=== PATIENT | female | born 1990 ===

== ENCOUNTER 2025-10-13 08:13 | Outpatient (AMB) | payer MEDICAID, SELFPAY ==
[2025-10-13 08:32] VITALS: BP 88/61; PULSE 79; RESP 18; TEMP 36.3; O2SAT 96; BMI 37.9
--- NOTE | 2025-10-13 08:32 | OBCLNT_ITS ---
Vital Signs 10/13/25 08:32 Height 1.5 m Height Method Stated Weight 85.389 kg Weight Measurement Method Standing Scale BMI 37.9 BP 88/61 L Blood Pressure Source Automatic Cuff Blood Pressure Location Right Upper Arm Position Sitting Respiration 18 Pulse 79 Pulse Source Monitor Temp 97.3 F Temp Source Temporal Artery Scan Pulse Oximetry (%) 96 Oxygen Delivery Method Room Air Allergies/Home Meds Allergies & Medications Allergies No Known Allergies Allergy (Verified 10/13/25 08:33) Medication Reconciliation No Known Home Medications 10/13/25 [History Confirmed 10/13/25] Intake Visit Data Collection New Patient or Established: New Patient (never been to [facility]) Reason for Visit:: OBI TRANSFER Seen by Clinical Staff ONLY (RN/MA): No Color Print Inspector Required: No Do You Feel Safe at Home: Yes Authorities Contacted: N/A PCP or OBGYN visit in last 3 months: No Hx Now: Yes Are you currently on any form of Control: No Last menstrual period: 01/17/25 Pain Present Currently: No Pain Scale Used: Munoz-Ferrer/Numerical Pain scale:: 0 Smoking Status Smoking Status: Never smoker Immunizations Flu Vaccine in the Last 12 Months: No Flu Vaccine Exclusion Criteria: No Exclusion Criteria Questionnaires Covid-19 Vaccine Questionnaire Has patient been vacinated for Covid-19 Have you been vacinated for Covid-19: No PHQ-9 PHQ-2 Over the last 2 weeks, how often have you been bothered by any of the following problems? 1. Little interest or pleasure in doing things: not at all 2. Feeling down, depressed, or hopeless: not at all Total score: 0 PHQ-9 3. Trouble falling or staying asleep, or sleeping too much: Not at all 4. Feeling tired or having little energy: Not at all 5. Poor appetite or overeating: Not at all 6. Feeling bad about yourself - or that you are a failure or have let yourself or your family down: Not at all 7. Trouble concentrating on things, such as reading the newspaper or watching television: Not at all 8. Moving or speaking so slowly that other people could have noticed? - Or the opposite - being so fidgety or restless that you have been moving around a lot more than usual: not at all 9. Thoughts that you would be better off or of hurting yourself in some way: Not at all Total score: 0 If you checked off any problems, how difficult have these problems made it for you to do your work, take care of things at home, or get along with other people?: not difficult at all Source: Developed by Drs. Toni Beasley, Shaina Guerrero, Maynor Worley and colleagues, with an educational nicholas from [employer]. Depression screen completed yes Social History Living Situation History Marital Status: Lives With: Family Housing: House Tobacco History Smoking Status: Never smoker Second Hand Smoke Exposure: No Alcohol History Alcohol Intake: Never Domestic Abuse History Do You Feel Safe at Home: Yes History of Present Illness HPI Narrative 34-year-old 6 para 4 for OBI. Patient is a transfer from [facility] partial records. She has had no problems in the . She has poor dates. Her last period January 17, 2025. This gave an EDC based on LMP of October 24, 2025. Patient had an ultrasound May 15. She was 12 weeks and this corrected the EDC to November 26, 2025. Reports movement. Denies leaking, bleeding, contractions. Patient received Tdap and flu. Denies any history of chronic illness. Denies social habits. Denies surgeries. OB Initial Visit OB Flowsheet OB Flowsheet Initial Weight: Not Recorded Date -?-?-?-?-?-?-?-?-?-?-?-?- EGA Weight BP Alb Glu CTX Pres Fundal ht FHR Mov Dilation Station Effacement Hx Notes Visit Note 10/13/25 -?-?-?-?-?-?-?-?-?-?-?-?- 33w 4d 85.389 kg 88/61 absent cephalic 33 145 active 34-year-old 6 para 4 for OBI. Patient is a transfer from [facility] with partial records. Poor dates her last period January 17, 2025. This gave a due date of October 24, 2025. First ultrasound May 15. Patient was 12 weeks and that changed to EDC to November 26, 2025. Patient has already gotten Tdap and whooping cough 34-year-old 6 para 4 for OBI. Patient is a transfer from [facility] with partial records. Poor dates her last period January 17, 2025. This gave a due date of October 24, 2025. First ultrasound May 15. Patient was 12 weeks and that changed to EDC to November 26, 2025. Patient has already gotten Tdap and whooping cough. Reports good movement. Denies leaking, bleeding, contractions Reviewed chart. GBS next visit. Discussed labor precautions kick count twice a day. Return in 2 weeks OB check Menstrual History Menstrual reliability: definite Flow: normal Menstrual regularity: regular Monthly: Yes Age at menarche: 16 OB History : 6 Para: 4 Hx Total # of Abortions (Spontaneous & Elective): 1 # of Living Children: 4 Delivery History 1st : Child's name: JHONY SOLORZANO date: 02/26/11 sex: female Delivery type: vaginal 2nd : Child's name: PARAG SHELDON date: 01/10/14 sex: male Delivery type: vaginal 3rd : Child's name: ROSITA AGUILAR date: 11/29/17 sex: female Delivery type: vaginal 4th : Child's name: RENATO MARTEL date: 10/03/20 sex: male Delivery type: vaginal Infection History & Risk Evaluation History of STDs: none Genetic Screening & History Genetic Screening/Teratology Counseling - Includes patient, baby's father, or anyone in either family with: 1. Patient's age 35 years or older as of estimated date of delivery: No 2. Thalassemia (Mohawk, Citizen Of [place], Mediterranean, or Background); MCV less than 80: No 3. Neural Tube Defect (Meningomyelocele, Spina Bifida, or Anencephaly): No 4. Congenital Heart Defect: No 5. Down Syndrome: No 6. Manoj-Sachs (Ashkenazi Orthodoxy, Caj[place], [place]): No 7. Narendra Disease (Ashkenazi Orthodoxy): No 8. Familial Dysautonomia (Ashkenazi Orthodoxy): No 9. Sickle Cell Disease or Trait (): No 10. Hemophilia or other blood disorders: No 11. Muscular Dystrophy: No 12. Cystic Fibrosis: No 13. [place]'s Chorea: No 14. Mental Retardation/Autism: Yes 15. Other inherited genetic or chromosomal disorder: No 16. Maternal Metabolic Disorder (EG,TYPE 1 Diabetes, PKU): No 17. Patient or baby's father had a child with defects not listed above: No 18. Recurrent loss or a stillbirth: No 19. Medications (including supplements, vitamins, herbs or otc drugs)/illicit/recreational drugs/alcohol since last menstrual period: No 20. Any other: No Infection History Other (see comments) Source: [employer] Review of Systems Review of Systems Systems Reviewed: All systems reviewed, normal except as documented Exam General Limitations: no limitations General Appearance: alert, in no apparent distress, comfortable, cooperative, healthy appearing, well developed and well groomed Head Head exam: atraumatic, normocephalic and normal inspection Chest Chest inspection: Present normal inspection and symmetric chest wall rise Resp Respiratory exam: Present normal lung sounds bilaterally Card Cardiovascular exam: Present regular rate, normal rhythm and normal heart sounds Abdominal Abdominal exam: Present soft and normal bowel sounds Psych Psychiatric exam: Present normal affect and normal mood Office Procedures OBC Clinic LOC & Office Proc's Nursing/Assessment Patient Status: Initial/New Patient OB Clinic Nursing Assessment: Medication Reconciliation, Update PMH in EMR and Vital Signs OB Clinic Coordination of Care: Complex Care and Chronic Disease 1-5, Education Complex Pt/Fam, Consent,records obtained, informed consent, Lab and Imaging orders, Results/Orders obtained and Staff clarify orders Special Needs: Heart tones New Patient Charge New Patient Point Assignment: [id number] 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 Continue prenatals. Discussed labor precautions. Increase fluids and return in 2 weeks OB check Additional Plan Follow Up: 2 Weeks (obc)
== END 2025-10-13 09:06 | disposition home or self-care (01) ==
LOC: HODSOBC 08:13
PROVIDERS: Supervising Provider Advanced Practice Midwife; Visit Provider Advanced Practice Midwife
DX: O09.893 Supervision of other high risk pregnancies, third trimester (principal); O26.843 Uterine size-date discrepancy, third trimester; Z3A.33 33 weeks gestation of pregnancy
CPT/HCPCS: 99204; G0463

== ENCOUNTER 2025-11-03 14:15 | Outpatient (AMB) | payer MEDICAID, SELFPAY ==
[2025-11-03 14:39] VITALS: BP 110/73; PULSE 86; RESP 18; TEMP 36.8; O2SAT 98; BMI 35.3
--- NOTE | 2025-11-03 14:39 | OBCLNT_ITS ---
Vital Signs 11/03/25 14:39 Height 1.55 m Height Method Stated Weight 84.878 kg Weight Measurement Method Standing Scale BMI 35.3 BP 110/73 Blood Pressure Source Automatic Cuff Blood Pressure Location Left Upper Arm Position Sitting Respiration 18 Pulse 86 Pulse Source Monitor Temp 98.2 F Temp Source Oral Pulse Oximetry (%) 98 Oxygen Delivery Method Room Air Allergies/Home Meds Allergies & Medications Allergies No Known Allergies Allergy (Verified 11/03/25 14:40) Medication Reconciliation No Known Home Medications 10/13/25 [History Confirmed 11/03/25] Immunizations Immunizations Flu Vaccine in the Last 12 Months: No Flu Vaccine Exclusion Criteria: Already Received Care OB Visit Log OB Flowsheet Initial Weight: Not Recorded Date -?-?-?-?-?-?-?-?-?-?-?-?- EGA Weight BP Alb Glu CTX Pres Fundal ht FHR Mov Dilation Station Effacement Hx Notes Visit Note 10/13/25 -?-?-?-?-?-?-?-?-?-?-?-?- 33w 4d 85.389 kg 88/61 absent cephalic 33 145 active 34-year-old 6 para 4 for OBI. Patient is a transfer from [facility] with partial records. Poor dates her last period January 17, 2025. This gave a due date of October 24, 2025. First ultrasound May 15. Patient was 12 weeks and that changed to EDC to November 26, 2025. Patient has already gotten Tdap and whooping cough 34-year-old 6 para 4 for OBI. Patient is a transfer from [facility] with partial records. Poor dates her last period January 17, 2025. This gave a due date of October 24, 2025. First ultrasound May 15. Patient was 12 weeks and that changed to EDC to November 26, 2025. Patient has already gotten Tdap and whooping cough. Reports good movement. Denies leaking, bleeding, contractions Reviewed chart. GBS next visit. Discussed labor precautions kick count twice a day. Return in 2 weeks OB check 11/03/25 -?-?-?-?-?-?-?-?-?-?-?-?- 36w 4d 84.878 kg 110/73 absent cephalic 36 145 active Fetus active. Reports good movement. Denies leaking, bleeding, contractions Schedule ultrasou nd at [facility] stat for growth and anatomy. Discussed labor precautions and kick count with patient. GBS today. Discussed danger signs and return week OB check RICO Calculator Estimated Delivery Date Method Current WG Current Estimate 11/27/25 Ultrasound #1 36w 4d Other Estimates 10/24/25 LMP (Uncertain) 41w 3d Notes Visit Date: 10/13/25 Last Updated by: Renee Walsh CNM OB panel: O+,abs-, rpr;;nr, rub IMM, hbsag-,hiv-,HC-, GC/CT- 2 hr gtt-. . TDAP/flu Office Procedures OBC Clinic LOC & Office Proc's Nursing/Assessment Patient Status: Established Patient OB Clinic Nursing Assessment: Update PMH in EMR and Vital Signs OB Clinic Coordination of Care: Consent,records obtained, informed consent, Education Simp Pt/Fam, Lab and Imaging orders, Results/Orders obtained and Staff clarify orders Special Needs: Heart tones Miscellaneous Interventions: Pelvic Comp w/OB cult Established Patient Charge Established Patient Point Assignment: 120 Established Patient Point Charge: EP Level 4 (120-155) Assessment & Plan Diagnosis / Problem List (1) Encounter for supervision of high risk in third trimester, antepartum: Status: Acute Plan Discussed labor precautions. Kick count twice a day. Discussed ER precautions. Sono at [facility] for growth. GBS today return in a week OB check Additional Plan Follow Up: 1 Week (obc)
== END 2025-11-03 15:10 | disposition home or self-care (01) ==
LOC: HODSOBC 14:15
PROVIDERS: Supervising Provider Advanced Practice Midwife; Visit Provider Advanced Practice Midwife
DX: O09.93 Supervision of high risk pregnancy, unspecified, third trimester (principal); Z3A.36 36 weeks gestation of pregnancy; Z36.85 Encounter for antenatal screening for Streptococcus B
CPT/HCPCS: 99214; G0463